=== PATIENT | male | born 1950 | race Caucasian/White ===

== ENCOUNTER 2018-07-27 08:44 | Day surgery (SDC) | payer MEDICARE ==
[~2018-07-27 08:44] MED LIST: KETOROLAC TROMETHAMINE 0.45% 4 DROP/0.4 ML DROPERETTE OD PRN; LIDOCAINE 1% INJ-PF (10 MG/ML) 30 ML SDV ONE; MIDAZOLAM 2 MG/2 ML INJ ONE
[2018-07-27] MEDS: BESIFLOXACIN HCL 0.6% OPH SUSP 5 ML BOTTLE OD PRN ×5 (09:28→10:38)
[2018-07-27] MEDS: TROPICAMIDE 1% OPH SOLN 3 ML OD PRN ×3 (09:28→09:48)
[2018-07-27] MEDS: CYCLOPENTOLATE 0.2%/PHENYLEPHRINE 1% OPH SOLN 2 ML OD PRN ×3 (09:28→09:48)
[2018-07-27] MEDS: TETRACAINE HCL 0.5% OPH SOLN 4 ML OD PRN ×4 (09:29→10:05)
[2018-07-27] MEDS: LIDOCAINE 1%/PHENYLEPHRINE 1.5% 1 ML VIAL ONE ×2 (10:14→10:19)
[2018-07-27] MEDS: EPINEPHRINE INJ/PF 1 MG/1 ML AMPULE ONE ×2 (10:14→10:19)
[2018-07-27] MEDS: CHONDR SU A NA/HYALUR INTRAOC KIT (SURGICARE) ONE ×2 (10:15→10:19)
[2018-07-27] MEDS ORDERED: MIDAZOLAM 2 MG/2 ML INJ ONE (10:17)
[2018-07-27] MEDS ORDERED: CHONDR SU A NA/HYALUR SOD 0.5 ML DISP.SYRIN ONE (10:44)
--- NOTE | 2018-07-28 08:22 | [facility] DISCHARGE SUMMARY E ---
[facility] Discharge Summary NAME: IRVIN QIU AGE: 67Y ADMITTED: 07/27/2018 DISCHARGED: 07/27/2018 FINAL DIAGNOSIS: CATARACT, RIGHT EYE. HISTORY/CLINIC COURSE: This is a 67-year-old male who underwent cataract extraction of the right eye with insertion of a Toric IOL without complication, woke up in postoperative recovery in stable condition. He underwent surgery because he was having difficulty driving at night secondary to glare from headlights. Patient is to be on a regular diet. No bending at the waist, no heavy lifting. Patient should use the Besivance, Ilevro, and Durezol at 3 p.m. and 8 p.m., and sleep with a rigid shield. I will see him for 1 day postoperative. DICTATING PHYSICIAN: STANISLAW ENRIQUEZ M.D. [id number] PHY#: [id number] ID: [id number] JOB#: [id number] ACCT: [id number] cc:STANISLAW ENRIQUEZ M.D. >
--- NOTE | 2018-07-28 08:22 | [facility] OPERATIVE REPORT E ---
[facility] Operative Report NAME: IRVIN QIU AGE: 67Y DATE OF SURGERY: 07/27/2018 ROOM: PREOPERATIVE DIAGNOSIS: CATARACT, RIGHT EYE. POSTOPERATIVE DIAGNOSIS: CATARACT, RIGHT EYE. OPERATION: Cataract extraction with insertion of Toric IOL of the right eye. SURGEON: STANISLAW ENRIQUEZ M.D. ANESTHESIA: Topical. PROCEDURE: After appropriate consent was obtained and calculations made, the patient was brought back to the operating room where the patient was prepped and draped in sterile fashion. A lid speculum was placed and attention was directed to a paracentesis where a paracentesis blade made a small incision. Viscoelastic was then used to inflate the anterior chamber. Next a 2.4 mm incision was made with the paracentesis blade. A continuous capsulorhexis forceps of approximately 5 mm was done using a cystitome and capsulorhexis forceps. Hydrodissection was carried out to make the lens freely mobile and then a divide and conquer technique was used to remove the lens with a CDE of approximately 8.53. Following this, the remaining cortical material was removed with irrigation/aspiration. After this the patient was then again marked. The marking procedure started in the preoperative holding area where 180 and 0 was marked with a marker. Now that the patient was in the operating room a 360-degree marker was used to calderon the axis at approximately 110 degrees and a toric lens of 15.5 diopters SN6AT4, was injected into the bag after filling with viscoelastic and rotating to 177 degrees into proper position. The I/A was used to remove the viscoelastic material and the toric lens appeared to be appropriately aligned. A 10-0 nylon suture was used to close the corneal incision and TobraDex was instilled into the eye and a pressure patch was placed with a protective shield. The patient returned to postoperative recovery in stable condition. DICTATING PHYSICIAN: STANISLAW ENRIQUEZ M.D. [id number] [id number] PHY#: [id number] ID: [id number] JOB#: [id number] ACCT: [id number] cc:STANISLAW ENRIQUEZ M.D. >
== END 2018-07-27 11:20 | disposition home or self-care (01) ==
LOC: SC 08:44
PROVIDERS: ATTEND Internal Medicine
DX: H25.813 Combined forms of age-related cataract, bilateral (principal); H17.89 Other corneal scars and opacities; H04.123 Dry eye syndrome of bilateral lacrimal glands; J44.9 Chronic obstructive pulmonary disease, unspecified; F17.210 Nicotine dependence, cigarettes, uncomplicated; I11.0 Hypertensive heart disease with heart failure; Z79.51 Long term (current) use of inhaled steroids; I25.2 Old myocardial infarction; K21.9 Gastro-esophageal reflux disease without esophagitis; Z79.82 Long term (current) use of aspirin; Z79.899 Other long term (current) drug therapy
CPT/HCPCS: 66984; V2787; J2250; J3490 ×3; A9270; J0171; J2370; 142

== ENCOUNTER 2018-08-19 09:24 | Day surgery (SDC) | payer MEDICARE ==
[~2018-08-19 09:24] MED LIST changes: +CHONDR SU A NA/HYALUR INTRAOC KIT (SURGICARE) ONE; +EPINEPHRINE INJ/PF 1 MG/1 ML AMPULE ONE; -KETOROLAC TROMETHAMINE 0.45% 4 DROP/0.4 ML DROPERETTE OD PRN; +KETOROLAC TROMETHAMINE 0.45% 4 DROP/0.4 ML DROPERETTE OS PRN; +LIDOCAINE 1%/PHENYLEPHRINE 1.5% 1 ML VIAL ONE; -MIDAZOLAM 2 MG/2 ML INJ ONE
[2018-08-19] MEDS: TROPICAMIDE 1% OPH SOLN 3 ML OS PRN ×3 (09:58→10:19)
[2018-08-19] MEDS: CYCLOPENTOLATE 0.2%/PHENYLEPHRINE 1% OPH SOLN 2 ML OS PRN ×3 (09:58→10:19)
[2018-08-19] MEDS: BESIFLOXACIN HCL 0.6% OPH SUSP 5 ML BOTTLE OS PRN ×4 (09:59→11:25)
[2018-08-19] MEDS: TETRACAINE HCL 0.5% OPH SOLN 4 ML OS PRN ×3 (10:00→10:39)
[2018-08-19] MEDS ORDERED: MIDAZOLAM 2 MG/2 ML INJ ONE ×2 (10:16→10:54)
[2018-08-19] MEDS ORDERED: FENTANYL CITRATE INJ/PF 100 MCG/2 ML AMPUL ONE (10:54)
[2018-08-19] MEDS: DORZOLAMIDE HCL 2%/TIMOLOL MALEAT 0.5% OPH SOLN 10 ML OS PRN ×2 (11:25)
--- NOTE | 2018-08-19 21:12 | [facility] DISCHARGE SUMMARY E ---
[facility] Discharge Summary NAME: IRVIN QIU AGE: 67Y ADMITTED: 08/19/2018 DISCHARGED: 08/19/2018 HOSPITAL COURSE: This is a 67-year-old male who underwent cataract extraction of the left eye with insertion of a Toric IOL. DIAGNOSIS: CATARACT, LEFT EYE. The patient underwent surgery because of having glare from headlights when driving at night. DISCHARGE INSTRUCTIONS: He should be on a regular diet. No bending at the waist, no heavy lifting. He should use Durezol, PROLENSA, and Besivance at 3 p.m. and 8 p.m. and sleep with a rigid shield. I will see him for a 1 day postoperative tomorrow. DICTATING PHYSICIAN: STANISLAW ENRIQUEZ M.D. [id number] [id number] PHY#: [id number] ID: [id number] JOB#: [id number] ACCT: [id number] cc:STANISLAW ENRIQUEZ M.D. > MTDD
--- NOTE | 2018-08-19 21:13 | [facility] OPERATIVE REPORT E ---
[facility] Operative Report NAME: IRVIN QIU AGE: 67Y DATE OF SURGERY: 08/19/2018 ROOM: PREOPERATIVE DIAGNOSIS: CATARACT, LEFT EYE. POSTOPERATIVE DIAGNOSIS: CATARACT, LEFT EYE. OPERATION: Cataract extraction with Toric IOL of the LEFT eye. SURGEON: STANISLAW ENRIQUEZ M.D. ANESTHESIA: Topical. PROCEDURE: After obtaining appropriate consent, the patient's LEFT eye was prepped and draped in sterile fashion as well as the surgeon in a sterile manner and cataract surgery was started. First a paracentesis blade was used to make a side-port incision. Viscoelastic was used to inflate the anterior chamber. Next a 2.4 mm incision was made with a 2.4 mm blade, clear corneal temporally. A continuous capsulorrhexis was made using a cystotome and Utrata forceps. Following this hydrodissection was carried out to make the lens fully loose and mobile and it was rotated to 175 degrees. Following this, a fkhqmz-obf-hbhaeli technique was used to phacoemulsify the lens with a CDE of 6.55. The remaining cortex was removed with irrigation/aspiration. Provisc was instilled into the capsular bag to inflate the bag. A SN6AT4, 15.5 diopter lens was placed. The remaining viscoelastic material was removed with irrigation/aspiration. Following this, the incision was found to be watertight. Besivance was instilled into the eye and a protective shield was placed over the eye. The patient returned to the postoperative recovery in stable condition. DICTATING PHYSICIAN: STANISLAW ENRIQUEZ M.D. [id number] [id number] PHY#: [id number] ID: [id number] JOB#: [id number] ACCT: [id number] cc:STANISLAW ENRIQUEZ M.D. > MTDTristan
== END 2018-08-19 12:20 | disposition home or self-care (01) ==
LOC: SC 09:24
PROVIDERS: ATTEND Internal Medicine
DX: H25.812 Combined forms of age-related cataract, left eye (principal); Z96.1 Presence of intraocular lens; H40.89 Other specified glaucoma; J44.9 Chronic obstructive pulmonary disease, unspecified; I25.2 Old myocardial infarction; I10 Essential (primary) hypertension; K21.9 Gastro-esophageal reflux disease without esophagitis; Z79.82 Long term (current) use of aspirin; F17.210 Nicotine dependence, cigarettes, uncomplicated; Z79.899 Other long term (current) drug therapy
CPT/HCPCS: 41899; V2787; J2250; J3490 ×2; A9270; J0171; J3010; J2370; 142